=== PATIENT | male | born 1960 | race Caucasian/White ===

== ENCOUNTER 2017-02-13 09:21 | Day surgery (SDC) | payer BC ==
[2017-02-13] MEDS ORDERED: NS 1000 ML 1,000 ML ONE (09:40)
[2017-02-13] MEDS ORDERED: DIPRIVAN VIAL 20 ML ONE (12:18)
[2017-02-13] MEDS ORDERED: DIPRIVAN VIAL 10 ML ONE (13:10)
[2017-02-13 13:58] VITALS: BP 145/85
--- NOTE | 2017-02-13 14:39 | OR.GENERIC ---
Post-Op Note Generic - Post-Op Note Operative Report: Endoscopy Report February 13, 2017 Pre-Operative Diagnosis: Dysphagia. Post-Operative Diagnosis: 1. Distal esophageal stricture. 2. Severe gastritis. 3. Moderate duodenitis. 4. Distal esophageal stricture. 5. Gastric polyp / cyst. Procedures: 1. Esophagogastroduodenoscopy with biopsy (cold-biopsy forceps). 2. Esophageal dilation (Saldaña to 48 filipino). Surgeon: Hang Carey MD. Thread Weaver: Selina Pace CRNA. Specimen(s): 1. Antral mucosa. 2. Gastric polyp / cyst. Estimated blood loss: Minimal. Complications: None. Summary: The patient is a 56 year old male who presented with dysphagia. The patient was offered esophagogastroduodenoscopy. The risk and benefits of the procedure including difficulty with anesthesia, bleeding, infection, as well as perforation were discussed with the patient. The patient understood these risks and requested the procedure. On February 13, 2017, the patient was brought to the endoscopy suite. A time out was performed verifying the patient and the procedure. A bite block was inserted. After satisfactory induction of monitored anesthesia care, an endoscope was advanced through the oropharynx, slowly through the esophagus, and into the stomach. Stenosis was noted in the distal esophagus. The stomach was insufflated. Severe gastritis was noted. No ulcers or erosions were seen. The scope was maneuvered into the duodenum which exhibited moderate inflammation. No ulcers or erosions were seen in the duodenum. The scope was brought back into the stomach and retroflexed. A gastric polyp was noted. This was biopsied using cold-biopsy forceps and sent to pathology. The scope was straightened and biopsies taken at the antrum using cold biopsy forceps. The scope was then slowly withdrawn into the esophagus. Evidence of mild gastroesophageal reflux disease was seen. The scope was brought back into the stomach and insufflation evacuated. The scope was withdrawn. The esophagus was then dilated using Saldaña dilators to 48 filipino. Attempts at passing a 54 filipino dilator were not successful. The scope was advanced back though the esophagus and no injury seen. The scope was removed and the procedure was terminated. The patient was awakened and taken to the recovery room in stable condition. There were no complications.
== END 2017-02-13 13:54 | disposition home or self-care (01) ==
LOC: SURG1 09:21
PROVIDERS: ATTEND Student in an Organized Health Care Education/Training Program
PROC: 0DB68ZX Excision of Stomach, Via Natural or Artificial Opening Endoscopic, Diagnostic (ICD-10-PCS; principal; 2017-02-13 09:00)
PROC: 0D757ZZ Dilation of Esophagus, Via Natural or Artificial Opening (ICD-10-PCS; principal; 2017-02-13 09:00)
PROC: 0DJ08ZZ Inspection of Upper Intestinal Tract, Via Natural or Artificial Opening Endoscopic (ICD-10-PCS; principal; 2017-02-13 09:00)
DX: R13.19 Other dysphagia (principal); K22.2 Esophageal obstruction; K29.60 Other gastritis without bleeding; K29.80 Duodenitis without bleeding; K31.7 Polyp of stomach and duodenum
CPT/HCPCS: A4217; J3490